=== PATIENT | female | born 1965 | race Caucasian/White ===

== ENCOUNTER 2023-06-27 11:56 | Emergency (ER) | payer SELFPAY ==
[~2023-06-27] VITALS: Ht 162.6 cm; Wt 67.0 kg
[2023-06-27 12:01] VITALS: BP 127/75; PULSE 91; RESP 18; TEMP 98.2; O2SAT 95
== END 2023-06-27 15:03 | disposition left against medical advice (07) ==
LOC: ER 12:35
DX: R07.89 Other chest pain (principal); Z53.21 Procedure and treatment not carried out due to patient leaving prior to being seen by health care provider
CPT/HCPCS: 93005; 99281